=== PATIENT | male | born 1945 | race Caucasian/White ===

== ENCOUNTER 2018-06-07 10:31 | Inpatient (IN) | payer OTHER ==
[~2018-06-07] VITALS: Ht 175.3 cm; Wt 60.1 kg
[2018-06-07] MEDS ORDERED: DEXTROSE 50% WATER 50ML SYRINGE IV ONE ×4 (10:57→11:15)
[2018-06-07] MEDS ORDERED: SODIUM CHLORIDE 0.9% 1000ML BAG (SEPSIS BOLUS) IV ONE (11:15)
[2018-06-07 12:34] LABS: INR 2.2; PROTHROMBIN TIME 22.3 sec (9.1-11.1)
[2018-06-07 12:35] LABS: CHLORIDE 104 mEq/L (98-107)
[2018-06-07 12:38] LABS: ETHANOL BLOOD < 10 mg/dL
[2018-06-07 12:46] LABS: BASOPHILS % 0.3 % (0.0-2.0); HEMATOCRIT. 47.2 % (42.0-52.0); LYMPHOCYTES % 7.7 % (20.0-50.0); MEAN CORPUSCULAR HEMOGLOBIN 31.6 pg (28.0-32.0); MEAN CORPUSCULAR VOLUME 93.3 fL (80.0-94.0); MONOCYTES % 6.2 % (2.0-8.0); NEUTROPHILS % 85.8 % (40.0-76.0); RED BLOOD CELL COUNT 5.06 mill/uL (4.7-6.1); RED CELL DISTRIBUTION WIDTH 15.5 % (11.6-14.6)
[2018-06-07] MEDS ORDERED: DEXT 5%/0.45% NACL KCL 20MEQ/L 1,000 ML IV ONE (12:46)
[2018-06-07] MEDS ORDERED: PIPERACILLIN/TAZ 3.375G PREMIX 50 ML IV ONE (13:00)
[2018-06-07 13:30] LABS: PLATELET 112 x1000/uL (130-400)
[2018-06-07 14:10] LABS: CLARITY URINE CLOUDY (CLEAR); COLOR URINE DARK YELLOW (YELLOW); KETONES URINE NEGATIVE (NEGATIVE); LEUKOCYTE ESTERASE URINE 1+ (NEGATIVE); NITRITE URINE NEGATIVE (NEGATIVE); OCCULT BLOOD URINE 2+ (NEGATIVE); PROTEIN URINE 3+ (NEGATIVE); SPECIFIC GRAVITY URINE 1.014 (1.005-1.030); UROBILINOGEN URINE 0.2 E.U./dL (0.2-1.0)
[2018-06-07] MEDS ORDERED: DEXT 10% WATER 1,000 ML IV ONE (14:11)
[2018-06-07 14:34] LABS: *AMPHETAMINES SCREEN URINE NEGATIVE (NEGATIVE); *BARBITURATES SCREEN URINE NEGATIVE (NEGATIVE); *BENZODIAZEPINES SCREEN URINE NEGATIVE (NEGATIVE); *COCAINE SCREEN URINE NEGATIVE (NEGATIVE); METHADONE URINE SCREEN NEGATIVE (NEGATIVE); OPIATES URINE SCREEN NEGATIVE (NEGATIVE); PHENCYCLIDINE URINE SCREEN NEGATIVE (NEGATIVE)
[2018-06-07 14:35] LABS: CANNABINOID URINE SCREEN NEGATIVE (NEGATIVE)
[2018-06-07 17:50] VITALS: BP 114/94
[2018-06-07 18:00] VITALS: BP 117/90
[2018-06-07] MEDS ORDERED: IPRATROPIUM/ALBUTEROL 0.5-3(2.5)MG/3ML NEB INH PRN (19:00)
[2018-06-07] MEDS ORDERED: LORAZEPAM 2MG/ML CPJ IV PRN (19:00)
[2018-06-07] MEDS ORDERED: ONDANSETRON HCL 4MG/2ML INJ IV PRN (19:00)
[2018-06-07] MEDS ORDERED: ENOXAPARIN 40MG/0.4ML SYR SUBCUT SCH (19:00)
[2018-06-07] MEDS ORDERED: ACETAMINOPHEN 650MG SUPP PR PRN (19:00)
[2018-06-07] MEDS ORDERED: FLUCONAZOLE 200MG/100ML PREMIX IV ONE (19:15)
[2018-06-07 20:00] VITALS: BP 120/79
[2018-06-07] MEDS ORDERED: FLUCONAZOLE 200 MG/100ML BAG 100 ML IV NR (20:00)
[2018-06-07] MEDS: HYDROMORPHONE HCL/PF 2MG/ML CPJ IV PRN (20:13)
[2018-06-07] MEDS ORDERED: VANCOMYCIN 1 G PREMIX 200 ML IV NR (21:00)
[2018-06-07] MEDS: DEXT 5%/0.45% NACL 1000ML 1,000 ML IV SCH (21:26)
[2018-06-07] MEDS: PIPERACILLIN/TAZ 3.375G PREMIX 50 ML IV SCH (21:26)
[2018-06-07 22:00] VITALS: BP 80/57
[2018-06-08] VITALS (12 sets, daily range): BP systolic 85–103; BP diastolic 55–73
[2018-06-08] MEDS: PIPERACILLIN/TAZ 3.375G PREMIX 50 ML IV SCH ×3 (05:45→22:16)
[2018-06-08] MEDS: BLOOD SUGAR DIAGNOSTIC STRIP TEST SCH ×4 (05:45→21:00)
[2018-06-08 06:38] LABS: BASOPHILS % 0.8 % (0.0-2.0); HEMATOCRIT. 42.4 % (42.0-52.0); HEMOGLOBIN. 14.1 g/dL (14.0-18.0); MEAN CORPUSCULAR HEMOGLOBIN 31.2 pg (28.0-32.0); NEUTROPHILS % 82.2 % (40.0-76.0); RED BLOOD CELL COUNT 4.51 mill/uL (4.7-6.1); RED CELL DISTRIBUTION WIDTH 15.2 % (11.6-14.6)
[2018-06-08 06:45] LABS: CHLORIDE 105 mEq/L (98-107)
[2018-06-08] MEDS: INSULIN LISPRO 100 UNITS/ML SUBCUT SCH ×4 (07:20→21:00)
[2018-06-08] MEDS ORDERED: VANCOMYCIN 500 MG PREMIX 100 ML IV SCH (09:00)
[2018-06-08 09:37] LABS: BG BASE EXCESS -5.9 mmol/L (-2.0-2.0); BG CARBOXYHEMOGLOBIN 0.9 % (0.5-1.5); BG DEOXYHEMOGLOBIN 16.2 % (0.0-5.0); BG FRACTION INSPIRED OXYGEN 21; BG HCO3 ACT 22.4 mmol/L (22.0-26.0); BG METHEMOGLOBIN 0.1 % (0.0-1.5); BG OXYGEN SATURATION 83.6 % (92.0-98.5); BG OXYHEMOGLOBIN 82.8 % (94.0-97.0); BG PCO2 54.9 mmHg (35.0-45.0); BG PH 7.228 (7.350-7.450); BG SAMPLE SITE LEFT RADIAL; BG TOTAL HEMOGLOBIN 14.9 g/dL (12.0-18.0); BG VENT MODE ROOM AIR
[2018-06-08 10:17] LABS: PLATELET 66 x1000/uL (130-400)
[2018-06-08] MEDS: DEXT 5%/0.45% NACL 1000ML 1,000 ML IV SCH (12:32)
[2018-06-08 12:33] LABS: BG BASE EXCESS -6.2 mmol/L (-2.0-2.0); BG BILEVEL POS AIRWAY PRESSURE 15/5; BG CARBOXYHEMOGLOBIN 0.8 % (0.5-1.5); BG DEOXYHEMOGLOBIN 2.9 % (0.0-5.0); BG FRACTION INSPIRED OXYGEN 40; BG HCO3 ACT 19.8 mmol/L (22.0-26.0); BG METHEMOGLOBIN 0.1 % (0.0-1.5); BG OXYGEN SATURATION 97.1 % (92.0-98.5); BG OXYHEMOGLOBIN 96.2 % (94.0-97.0); BG PH 7.302 (7.350-7.450); BG PO2 102.5 mmHg (75.0-100.0); BG SAMPLE SITE LEFT RADIAL; BG TOTAL HEMOGLOBIN 14.6 g/dL (12.0-18.0); BG VENT MODE MASK - BIPAP; BG VENT RATE 16 set
[2018-06-08] MEDS: DEXTROSE 50% WATER 50ML SYRINGE IV PRN ×2 (16:45→23:11)
[2018-06-08] MEDS ORDERED: VANCOMYCIN 1 G PREMIX 200 ML IV SCH (18:00)
[2018-06-09] VITALS: BP 117/72
[2018-06-09] MEDS: HYDROMORPHONE HCL/PF 2MG/ML CPJ IV PRN (03:18)
[2018-06-09 04:00] VITALS: BP 92/66
[2018-06-09] MEDS: DEXT 5%/0.45% NACL 1000ML 1,000 ML IV SCH (05:33)
[2018-06-09] MEDS: PIPERACILLIN/TAZ 3.375G PREMIX 50 ML IV SCH (05:33)
[2018-06-09] MEDS: DEXTROSE 50% WATER 50ML SYRINGE IV PRN (06:51)
[2018-06-09] MEDS: BLOOD SUGAR DIAGNOSTIC STRIP TEST SCH (07:35)
[2018-06-09] MEDS: INSULIN LISPRO 100 UNITS/ML SUBCUT SCH (07:50)
[2018-06-09 08:00] VITALS: BP 83/59
[2018-06-09 12:00] VITALS: BP 94/61
[2018-06-09] MEDS: SULFAMETHOXAZOLE/TRIMETHOPRIM 800/160MG TABLET PO SCH ×2 (13:00→21:00)
[2018-06-09 16:00] VITALS: BP 97/60
[2018-06-09 20:00] VITALS: BP 106/54
[2018-06-10] VITALS: BP 109/80
== END 2018-06-10 02:39 | disposition expired | DRG 871 ==
LOC: ER 10:31 → 3WST 13:13 → EDBEDREQ 13:17 → ENRESERV 14:58 → 6EST 06-08 21:21
PROVIDERS: ADMIT Hospitalist; ATTEND Hospitalist
PROC: 5A09357 Assistance with Respiratory Ventilation, Less than 24 Consecutive Hours, Continuous Positive Airway Pressure (ICD-10-PCS; principal; 2018-06-08)
DX: A41.9 Sepsis, unspecified organism (principal); J96.01 Acute respiratory failure with hypoxia; E43 Unspecified severe protein-calorie malnutrition; I50.41 Acute combined systolic (congestive) and diastolic (congestive) heart failure; N39.0 Urinary tract infection, site not specified; G93.40 Encephalopathy, unspecified; J84.9 Interstitial pulmonary disease, unspecified; Z68.1 Body mass index [BMI] 19.9 or less, adult; R65.20 Severe sepsis without septic shock; N28.9 Disorder of kidney and ureter, unspecified; E86.0 Dehydration; D69.6 Thrombocytopenia, unspecified; E11.649 Type 2 diabetes mellitus with hypoglycemia without coma; E87.5 Hyperkalemia; L89.90 Pressure ulcer of unspecified site, unspecified stage; E11.51 Type 2 diabetes mellitus with diabetic peripheral angiopathy without gangrene; E11.65 Type 2 diabetes mellitus with hyperglycemia; F03.90 Unspecified dementia, unspecified severity, without behavioral disturbance, psychotic disturbance, mood disturbance, and anxiety; I11.0 Hypertensive heart disease with heart failure; I25.10 Atherosclerotic heart disease of native coronary artery without angina pectoris; R62.7 Adult failure to thrive; Z51.5 Encounter for palliative care; Z66 Do not resuscitate; Z91.14 Patient's other noncompliance with medication regimen; Z95.1 Presence of aortocoronary bypass graft; Z74.01 Bed confinement status
CPT/HCPCS: 36415; 36600; 71045; 80305; 82375; 82805; 82962; 83605; 83880; 84134; 84145; 84484; 87106; 87804; 93005; 93970; 94660; 96365; 96366; 96375; 99291; G0482; J1170; J1450; J2060; J2543; J3370; J3490; J7030